=== PATIENT | male | born 1985 | race Caucasian/White ===

== ENCOUNTER 2021-12-13 21:12 | Emergency (ER) | payer MEDICAID, OTHER ==
[~2021-12-13] VITALS: Ht 182.9 cm; Wt 172.4 kg
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
[2021-12-13] MEDS ORDERED: IBUPROFEN 400 MG TABLET ONE (21:37)
--- NOTE | 2021-12-13 21:44 | NUR ---
XRAY AT BEDSIDE
[2021-12-13] MEDS ORDERED: IBUPROFEN 400 MG TABLET PO ONE (22:00)
[2021-12-13 22:56] VITALS: BP 138/104
== END 2021-12-13 22:47 | disposition home or self-care (01) ==
LOC: ER 21:22
DX: S70.02XA Contusion of left hip, initial encounter (principal); E66.01 Morbid (severe) obesity due to excess calories; Z68.43 Body mass index [BMI] 50.0-59.9, adult; V49.49XA Driver injured in collision with other motor vehicles in traffic accident, initial encounter; Y93.89 Activity, other specified; Y92.413 State road as the place of occurrence of the external cause; Y99.8 Other external cause status
CPT/HCPCS: 73502